=== PATIENT | male | born 1975 | race Caucasian/White ===

== ENCOUNTER 2020-01-15 09:46 | Emergency (ER) | payer SELFPAY ==
[~2020-01-15] VITALS: Ht 172.7 cm; Wt 77.1 kg
[2020-01-15 10:00] VITALS: Ht 172.7 cm; Wt 77.1 kg
[2020-01-15 11:37] VITALS: BP 150/81
== END 2020-01-15 12:11 | disposition home or self-care (01) ==
LOC: ED 09:46
DX: S01.511A Laceration without foreign body of lip, initial encounter (principal); S80.01XA Contusion of right knee, initial encounter; V23.4XXA Motorcycle driver injured in collision with car, pick-up truck or van in traffic accident, initial encounter; Y93.89 Activity, other specified; Y92.89 Other specified places as the place of occurrence of the external cause; Y99.8 Other external cause status
CPT/HCPCS: 90715